=== PATIENT | male | born 1965 | race African-American/Black ===

== ENCOUNTER 2022-03-24 13:35 | Emergency (ER) | payer BC ==
[~2022-03-24] VITALS: Ht 190.5 cm; Wt 98.0 kg
[2022-03-24 13:43] VITALS: BP 181/92
[2022-03-24 16:44] LABS: BASOPHILS % 1.1 % (0.0-2.0); EOSINOPHILS % 0.9 % (0.0-5.0); HEMATOCRIT. 41.8 % (42.0-52.0); HEMOGLOBIN. 13.8 g/dL (14.0-18.0); LYMPHOCYTES % 30.8 % (20.0-50.0); MEAN CORPUSCULAR VOLUME 88.2 fL (80.0-94.0); MEAN PLATELET VOLUME 8.6 fl (7.4-10.4); MONOCYTES % 6.2 % (2.0-8.0); PLATELET 239 x1000/uL (130-400); RED BLOOD CELL COUNT 4.74 mill/uL (4.7-6.1); RED CELL DISTRIBUTION WIDTH 15.9 % (11.6-14.6)
[2022-03-24 16:51] LABS: CHLORIDE 107 mEq/L (98-107)
[2022-03-24] MEDS ORDERED: LORAZEPAM 1MG TABLET PO ONE (18:00)
[2022-03-24] MEDS ORDERED: LORA-249 MT (18:54)
== END 2022-03-24 19:01 | disposition home or self-care (01) ==
LOC: ER 13:35
DX: R07.89 Other chest pain (principal); E78.00 Pure hypercholesterolemia, unspecified; I10 Essential (primary) hypertension
CPT/HCPCS: 36415; 71045; 80053; 83880; 84484; 85025; 93005; 99285